=== PATIENT | female | born 1995 | race Hispanic/Latino ===

== ENCOUNTER 2021-12-15 00:14 | Emergency (ER) | payer OTHER ==
[~2021-12-15] VITALS: Ht 160 cm; Wt 68.0 kg
[2021-12-15] MEDS: KETOROLAC 60 MG VIAL (30MG/ML) IM ONE (01:11)
[2021-12-15] MEDS: HYDROCODONE/ACETAMINOPHEN 10/325 MG TAB ONE (03:46)
[2021-12-15] MEDS ORDERED: IBUP-2070 PO (04:49)
[2021-12-15] MEDS ORDERED: PENI500T2 PO (05:00)
[2021-12-15 05:20] VITALS: BP 103/58
== END 2021-12-15 05:21 | disposition home or self-care (01) ==
LOC: EDH 00:14
DX: K08.89 Other specified disorders of teeth and supporting structures (principal); R51.9 Headache, unspecified; Z98.890 Other specified postprocedural states
CPT/HCPCS: 96372; 99283; J1885